=== PATIENT | female | born 1970 | race Hispanic/Latino ===

== ENCOUNTER 2018-01-01 08:36 | Emergency (ER) | payer OTHER ==
--- NOTE | 2018-01-01 09:23 | ED PDOC ---
Arrival/HPI - General Chief Complaint: Trauma Time Seen by Provider: 01/01/18 09:11 Historian: Patient - History of Present Illness Narrative History of Present Illness (Text): 01/01/18 09:20 47 y/o female, no pmh, penicillin and sulfa drug allergy, c/o rt. hand thumb pain s/p jammed it last night from play fight. Aching pain, aggravated by movement, no numbness or tingling, no night sweat, no rash, no change in vision , no other medical or psychological complaints. Past Medical History - Provider Review Nursing Documentation Reviewed: Yes - Infectious Disease Hx of Infectious Diseases: None - Pulmonary Hx Asthma: Yes - Endocrine/Metabolic Hx Systemic Lupus Erythematosus: Yes - Psychiatric Hx Anxiety: Yes Hx Panic Disorder: Yes Hx Substance Use: No - Surgical History Hx Section: Yes Hx Dilation and Curettage: Yes (x3) Family/Social History - Physician Review Nursing Documentation Reviewed: Yes Family/Social History: Unknown Family HX Smoking Status: Never Smoked Hx Alcohol Use: No Hx Substance Use: No Allergies/Home Meds Allergies/Adverse Reactions: Allergies Penicillins Allergy (Verified 01/01/18 09:18) ANAPHYLAXIS Sulfa (Sulfonamide Antibiotics) Allergy (Verified 01/01/18 09:18) URTICARIA Review of Systems - Review of Systems Constitutional: absent: Fatigue, Fevers Eyes: absent: Vision Changes ENT: absent: Hearing Changes Respiratory: absent: SOB, Cough Cardiovascular: absent: Chest Pain Gastrointestinal: absent: Abdominal Pain, Nausea, Vomiting Musculoskeletal: Arthralgias, Joint Swelling. absent: Back Pain, Neck Pain, Myalgias Skin: absent: Rash, Pruritis Psychiatric: absent: Anxiety, Depression, Suicidal Ideation Physical Exam Vital Signs Reviewed: Yes Vital Signs Temp Pulse Resp BP Pulse Ox 01/01/18 09:29 98.2 F 81 16 141/74 99 Temperature: Afebrile Pulse: Regular Respiratory Rate: Normal Appearance: Positive for: Well-Appearing, Non-Toxic, Comfortable Pain Distress: Moderate Mental Status: Positive for: Alert and Oriented X 3 - Systems Exam Head: Present: Atraumatic, Normocephalic Pupils: Present: PERRL Extroacular Muscles: Present: EOMI Conjunctiva: Present: Normal Mouth: Present: Moist Mucous Membranes Neck: Present: Normal Range of Motion Respiratory/Chest: Present: Clear to Auscultation, Good Air Exchange. No: Respiratory Distress, Accessory Muscle Use Cardiovascular: Present: Regular Rate and Rhythm, Normal S1, S2. No: Murmurs Abdomen: Present: Normal Bowel Sounds. No: Tenderness, Distention, Peritoneal Signs Back: Present: Normal Inspection Upper Extremity: Present: Normal Inspection, Other (Rt. hand: +ttp and mild swelling to the 1st MCPJ region, skin intact, no laceration or abrasion, FROM without limitation, sensation intact, motor 5/5, +radial pulse, capillary refill < 2 seconds, neurovascular intact. ). No: Cyanosis, Edema Lower Extremity: Present: Normal Inspection. No: Edema Neurological: Present: GCS=15, CN II-XII Intact, Speech Normal Skin: Present: Warm, Dry, Normal Color. No: Rashes Psychiatric: Present: Alert, Oriented x 3, Normal Insight, Normal Concentration Medical Decision Making ED Course and Treatment: 01/01/18 09:23 -rt. hand xray -motrin -observe and reasses 01/01/18 11:26 -Urine hcg negative -Rt. hand xray show no fracture or dislocation. -thumb spica splint applied with neurovascular intact by me. -Pain decreased -Discharge home with naproxen, thumb spica splint, ice compression, follow up with your own pmd and hand specialist within 2 days, return to the ER for any new or worsening signs or symptoms. - RAD Interpretation Radiology Orders: 01/01/18 09:53 HAND RIGHT THUMB [RAD] Stat PROCEDURE: Right Hand and thumb Radiographs. HISTORY: rt. hand thumb pain COMPARISON: None. FINDINGS: BONES: Normal. No fracture. JOINTS: Normal. No osteoarthritic changes. SOFT TISSUES: Normal. OTHER FINDINGS: None. IMPRESSION: Normal right hand radiographs. Land Manager: Radiologist - Medication Orders Current Medication Orders: Discontinued Medications Ibuprofen (Motrin Tab) 600 mg PO STAT STA Stop: 01/01/18 09:20 Last Admin: 01/01/18 10:09 Dose: 600 mg MAR Pain/Vitals Document 01/01/18 10:09 SF (Rec: 01/01/18 10:09 SF [id number]) Pain Reassessment Is This A Pain ReAssessment? Yes Sleep Is patient sleeping during reassessment? No Presence of Pain Presence of Pain Yes Pain Scale Used Pain Scale Used Numeric Location Left, Right or Bilateral Right Pain Location Body Site Finger - PA / HOME HEALTH NURSE / Resident Statement / has reviewed & agrees with the documentation as recorded. Disposition/Present on Arrival - Present on Arrival Any Indicators Present on Arrival: No History of DVT/PE: No History of Uncontrolled Diabetes: No Urinary Catheter: No History of Decub. Ulcer: No History Surgical Site Infection Following: None - Disposition Have Diagnosis and Disposition been Completed?: Yes Diagnosis: Thumb pain, Thumb injury Disposition: HOME/ ROUTINE Disposition Time: 09:23 Patient Plan: Discharge Patient Problems: Current Active Problems Problem Status Onset Thumb pain Acute Thumb injury Acute Condition: GOOD Additional Instructions: -Discharge home with naproxen, thumb spica splint, ice compression, follow up with your own pmd and hand specialist within 2 days, return to the ER for any new or worsening signs or symptoms. Prescriptions: Naproxen 500 mg PO BID PRN #20 tablet PRN Reason: Other Referrals: Shaik Pacheco MD [Primary Care Provider] - Follow up with primary Myron Santos DO [Staff Provider] - Follow up with primary Forms: [facility] (Icelandic), WORK NOTE
[2018-01-01 09:37] VITALS: RESP 16; TEMP 98.2; O2SAT 99
--- NOTE | 2018-01-01 11:38 | RAD ---
PROCEDURE: Right Hand and thumb Radiographs. HISTORY: rt. hand thumb pain COMPARISON: None. FINDINGS: BONES: Normal. No fracture. JOINTS: Normal. No osteoarthritic changes. SOFT TISSUES: Normal. OTHER FINDINGS: None. IMPRESSION: Normal right hand radiographs.
[2018-01-01 11:47] VITALS: BP 139/87; PULSE 80
== END 2018-01-01 11:45 | disposition home or self-care (01) ==
LOC: ED 08:36 → MERGE 08:36 → ED 11:45
DX: S69.91XA Unspecified injury of right wrist, hand and finger(s), initial encounter (principal); W23.0XXA Caught, crushed, jammed, or pinched between moving objects, initial encounter; Y92.89 Other specified places as the place of occurrence of the external cause

== ENCOUNTER 2018-03-23 11:56 | Emergency (ER) | payer OTHER ==
[2018-03-23 11:57] VITALS: BMI 44.6
== END 2018-03-23 13:09 | disposition left against medical advice (07) ==
LOC: ED 11:56
DX: Z02.89 Encounter for other administrative examinations (principal); R07.0 Pain in throat

== ENCOUNTER 2018-07-04 14:11 | Emergency (ER) | payer OTHER ==
[2018-07-04 14:32] VITALS: RESP 18; O2SAT 96; BMI 45.7
[2018-07-04] MEDS ORDERED: Sodium Chloride 0.9% 1,000 ML IV STA (14:44)
--- NOTE | 2018-07-04 14:58 | ED PDOC ---
Arrival/HPI - General Chief Complaint: Abdominal Pain Time Seen by Provider: 07/04/18 14:28 Historian: Patient - History of Present Illness Narrative History of Present Illness (Text): 07/04/18 14:54 48 year old female with a past medical history of Asthma, Bipolar Disorder, Anxiety, depression, and , presents to the emergency department with flu-like symptoms, and worsening throat/ear pain for 4 days. Patient states she saw her PMD for her initial flu-like symptoms, and was treated with antibiotic. Patient states after antibiotics, she began to feel throat pain and ear pain. Patient states it hurts when she eats, and she feels pressure in her ears. The patient denies fevers, chills, headache, dizziness, chest pain, shortness of breath, nausea, vomiting, diarrhea, neck/back pain, urinary/bowel changes or any other complaint. Symptom Course: Unchanged Quality: Aching Past Medical History - Provider Review Nursing Documentation Reviewed: Yes - Infectious Disease Hx of Infectious Diseases: None - Cardiac Hx Hypertension: Yes - Pulmonary Hx Asthma: Yes Hx Bronchitis: Yes - Neurological Hx Neurological Disorder: No - HEENT Hx HEENT Disorder: No - Renal Hx Renal Disorder: No - Endocrine/Metabolic Hx Systemic Lupus Erythematosus: Yes - Hematological/Oncological Hx Blood Disorders: No - Integumentary Hx Dermatological Disorder: No - Musculoskeletal/Rheumatological Hx Musculoskeletal Disorders: No - Gastrointestinal Hx Gastrointestinal Disorders: No - Psychiatric Hx Anxiety: Yes Hx Bipolar Disorder: Yes Hx Panic Disorder: Yes Hx Substance Use: No - Surgical History Hx Dilation and Curettage: Yes - Anesthesia Hx Anesthesia: Yes Hx Anesthesia Reactions: No Hx Malignant Hyperthermia: No Family/Social History - Physician Review Nursing Documentation Reviewed: Yes Family/Social History: No Known Family HX Smoking Status: Heavy Smoker > 10 Cigarettes Daily Hx Alcohol Use: Yes Frequency of alcohol use: Socially Hx Substance Use: No Allergies/Home Meds Allergies/Adverse Reactions: Allergies Penicillins Allergy (Verified 09/05/17 11:00) RASH Sulfa (Sulfonamide Antibiotics) Allergy (Verified 09/05/17 11:00) REDNESS Review of Systems - Physician Review All systems were reviewed & negative as marked: Yes - Review of Systems Constitutional: Normal. absent: Fevers, Night Sweats Eyes: Normal ENT: Tinnitus, Sore Throat Respiratory: Normal. absent: SOB Cardiovascular: Normal. absent: Chest Pain Gastrointestinal: Normal. absent: Abdominal Pain, Diarrhea, Nausea, Vomiting Genitourinary Female: Normal Musculoskeletal: Normal. absent: Back Pain, Neck Pain Skin: Normal Neurological: Normal. absent: Headache, Dizziness Endocrine: Normal Hemo/Lymphatic: Normal Psychiatric: Normal Physical Exam Vital Signs Reviewed: Yes Vital Signs Temp Pulse Resp BP Pulse Ox 07/04/18 15:56 98.2 F 80 18 153/87 H 96 07/04/18 14:11 98.8 F 75 18 137/95 H 96 Temperature: Afebrile Blood Pressure: Normal Pulse: Regular Respiratory Rate: Normal Appearance: Positive for: Well-Appearing, Non-Toxic, Comfortable Pain Distress: None Mental Status: Positive for: Alert and Oriented X 3 - Systems Exam Head: Present: Atraumatic, Normocephalic Pupils: Present: PERRL Extroacular Muscles: Present: EOMI Conjunctiva: Present: Normal Mouth: Present: Moist Mucous Membranes Neck: Present: Normal Range of Motion Respiratory/Chest: Present: Clear to Auscultation, Good Air Exchange. No: Respiratory Distress, Accessory Muscle Use Cardiovascular: Present: Regular Rate and Rhythm, Normal S1, S2. No: Murmurs Abdomen: Present: Tenderness (epigastric tenderness) Back: Present: Normal Inspection Upper Extremity: Present: Normal Inspection. No: Cyanosis, Edema Lower Extremity: Present: Normal Inspection. No: Edema Neurological: Present: GCS=15, CN II-XII Intact, Speech Normal Skin: Present: Warm, Dry, Normal Color. No: Rashes Psychiatric: Present: Alert, Oriented x 3, Normal Insight, Normal Concentration Medical Decision Making ED Course and Treatment: 07/04/18 15:01 Impression: 48 year old female presents to the emergency department with flu- like symptoms and throat/ear pain and epigastric pain - suspect gerd vs gastriirts vs pud vs viral syndrome. labs imaging pendign bedside us neg for cholecystitis. Plan: -- Labs -- Urinalysis -- Tylenol -- Zofran -- Protonix -- Reassess and disposition Prior Visits: Notes and results from previous visits were reviewed. Progress Notes: 07/05/18 07:20 labs neg. pain resolved. no lower abd pain no rlq ttp. advise outpt fu and return precautions pt states she feels much better asking for dc - Lab Interpretations Lab Results: 07/04/18 15:00 07/04/18 15:00 Lab Results 07/04/18 15:00: Grp A Beta Strep Ag Negative 07/04/18 15:00: Sodium 140, Potassium 4.0, Chloride 105, Carbon Dioxide 26, Anion Gap 12, BUN 11, Creatinine 0.7, Est GFR ( Amer) > 60, Est GFR (Non- Af Amer) > 60, Random Glucose 89, Calcium 9.1, Magnesium 2.1, Total Bilirubin 0.4, AST 19, ALT 19, Alkaline Phosphatase 68, Total Protein 6.9, Albumin 3.7, Globulin 3.2, Albumin/Globulin Ratio 1.2, Lipase 27 07/04/18 15:00: Urine Color Yellow, Urine Appearance Clear, Urine pH 6.5, Ur Specific [place] 1.010, Urine Protein Negative, Urine Glucose (UA) Negative, Urine Ketones Negative, Urine Blood Negative, Urine Nitrate Negative, Urine Bilirubin Negative, Urine Urobilinogen 0.2, Ur Leukocyte Esterase Negative, Urine HCG, Qual Negative 07/04/18 15:00: PT 11.6, INR 1.02, APTT 28.3 07/04/18 15:00: WBC 9.0, RBC 4.44, Hgb 12.2, Hct 36.3, MCV 81.8, MCH 27.5, MCHC 33.6, RDW 14.4, Plt Count 274, MPV 9.5, Gran % 69.1 H, Lymph % (Auto) 24.9, [place] % (Auto) 5.8, Eos % (Auto) 0.0 L, Baso % (Auto) 0.2, Gran # 6.25, Lymph # ( Auto) 2.3, [place] # (Auto) 0.5, Eos # (Auto) 0.0, Baso # (Auto) 0.02 - RAD Interpretation Radiology Orders: 07/04/18 14:45 CHEST PORTABLE [RAD] Stat - Medication Orders Current Medication Orders: Discontinued Medications Acetaminophen (Tylenol 325mg Tab) 975 mg PO STAT STA Stop: 07/04/18 14:45 Last Admin: 07/04/18 15:18 Dose: 975 mg MAR Pain/Vitals Document 07/04/18 15:18 SRE (Rec: 07/04/18 15:18 SRE [id number]) Pain Reassessment Is This A Pain ReAssessment? Yes Sleep Is patient sleeping during reassessment? No Presence of Pain Presence of Pain Yes Pain Scale Used Pain Scale Used Numeric Location Pain Location Body Site Back Description Intermittent Sodium Chloride (Sodium Chloride 0.9%) 1,000 mls @ 1,000 mls/hr IV .Q1H STA Stop: 07/04/18 15:43 Last Admin: 07/04/18 15:17 Dose: 1,000 mls/hr eMAR Start Stop Document 07/04/18 15:17 SRE (Rec: 07/04/18 15:18 SRE [id number]) Intravenous Solution Start Date 07/04/18 Start Time 15:17 End Date 07/04/18 End time 16:20 Total Infusion Time 63 Ondansetron HCl (Zofran Inj) 4 mg IVP STAT STA Stop: 07/04/18 14:46 Last Admin: 07/04/18 15:18 Dose: 4 mg IVP Administration Document 07/04/18 15:18 SRE (Rec: 07/04/18 15:18 SRE [id number]) Charges for Administration # of IVP Administrations 1 Pantoprazole Sodium (Protonix Inj) 40 mg IVP STAT STA Stop: 07/04/18 14:45 Last Admin: 07/04/18 15:18 Dose: 40 mg IVP Administration Document 07/04/18 15:18 SRE (Rec: 07/04/18 15:18 SRE [id number]) Charges for Administration # of IVP Administrations 1 - Scribe Statement The provider has reviewed the documentation as recorded by the Scribvanda Bar All medical record entries made by the Scribe were at my direction and personally dictated by me. I have reviewed the chart and agree that the record accurately reflects my personal performance of the history, physical exam, medical decision making, and the department course for this patient. I have also personally directed, reviewed, and agree with the discharge instructions and disposition. Disposition/Present on Arrival - Present on Arrival Any Indicators Present on Arrival: No History of DVT/PE: No History of Uncontrolled Diabetes: No Urinary Catheter: No History of Decub. Ulcer: No History Surgical Site Infection Following: None - Disposition Have Diagnosis and Disposition been Completed?: Yes Diagnosis: Sore throat, Abdominal pain Disposition: HOME/ ROUTINE Disposition Time: 03:00 Condition: STABLE Discharge Instructions (ExitCare): Sore Throat in Adults, Acute Abdomen (Belly Pain) Additional Instructions: please follow up with your doctor. return to er with worsening symptoms or concerns. please see specialists Prescriptions: Pantoprazole Sodium [Protonix] 40 mg PO DAILY 10 Days #10 ect Referrals: [facility] [Outside] - Follow up with primary [facility] [place] [Outside] - Follow up with primary Marques Dougherty JD, MD [Primary Care Provider] - Follow up with primary Yrn Giordano MD [Staff Provider] - Follow up with primary Forms: [employer] (Bulgarian)
[2018-07-04 15:24] LABS: PH,URINE 6.5 (4.7-8.0); URINE BILIRUBIN NEGATIVE (NEGATIVE); URINE BLOOD NEGATIVE (NEGATIVE); URINE GLUCOSE (UA) NEGATIVE (NEGATIVE); URINE LEUKOCYTE ESTERASE NEGATIVE Leu/uL (NEGATIVE); URINE PROTEIN NEGATIVE mg/dL (<30 mg/dL); URINE UROBILINOGEN 0.2 E.U./dL (<1 E.U./dL)
[2018-07-04 15:28] LABS: BASO # 0.02 K/mm3 (0.0-2.0); BASO % 0.2 % (0.0-3.0); GRAN # 6.25 (1.4-6.5); GRAN % 69.1 % (50.0-68.0); HEMOGLOBIN 12.2 g/dL (12.0-16.0); LYMPH # 2.3 (1.2-3.4); LYMPH % 24.9 % (22.0-35.0); MEAN CELL VOLUME 81.8 fl (80.0-105.0); MEAN CORPUSCULAR HEMOGLOBIN 27.5 pg (25.0-35.0); MEAN CORPUSCULAR HGB CONC 33.6 g/dl (31.0-37.0); MEAN PLATELET VOLUME 9.5 fl (7.0-11.0); MONO # 0.5 (0.1-0.6); MONO % 5.8 % (1.0-6.0); RBC 4.44 10^6/uL (3.5-6.1); RED CELL DISTRIBUTION WIDTH 14.4 % (11.5-14.5); URINE APPEARANCE CLEAR (CLEAR); URINE COLOR YELLOW (YELLOW)
[2018-07-04 15:29] LABS: HCG,QUALITATIVE URINE NEGATIVE (NEGATIVE)
[2018-07-04 15:30] LABS: INR 1.02; PARTIAL THROMBOPLASTIN TIME 28.3 Seconds (25.1-36.5); PROTHROMBIN TIME 11.6 SECONDS (9.4-12.5)
[2018-07-04 15:37] LABS: ALB/GLOB RATIO 1.2 (1.1-1.8); ALBUMIN 3.7 g/dL (3.0-4.8); ALT/SGPT 19 U/L (7-56); AST/SGOT 19 U/L (14-36); BLOOD UREA NITROGEN 11 mg/dL (7-21); CALCIUM 9.1 mg/dL (8.4-10.5); GFR NON-AFRICAN AMERICAN > 60; LIPASE 27 U/L (23-300)
--- NOTE | 2018-07-04 15:49 | RAD ---
Date of service: 07/04/2018 HISTORY: Abdominal pain COMPARISON: 02/10/2018. FINDINGS: LUNGS: The lungs are well inflated and clear. PLEURA: No significant pleural effusion identified, no pneumothorax apparent. CARDIOVASCULAR: Normal. OSSEOUS STRUCTURES: No significant abnormalities. VISUALIZED UPPER ABDOMEN: Normal. OTHER FINDINGS: None. IMPRESSION: No active pulmonary disease.
[2018-07-04 15:58] VITALS: BP 153/87; PULSE 80; TEMP 98.2
== END 2018-07-04 15:56 | disposition home or self-care (01) ==
LOC: ED 14:11
DX: J02.9 Acute pharyngitis, unspecified (principal); R10.13 Epigastric pain; F17.210 Nicotine dependence, cigarettes, uncomplicated; I10 Essential (primary) hypertension; M32.9 Systemic lupus erythematosus, unspecified
CPT/HCPCS: 71045; 80053; 81003; 83690; 83735; 84703; 85025; 85610; 85730; 87070; 87430; 96361; 96374; 96375; 99283; C9113; J2405; J7030

== ENCOUNTER 2018-09-06 20:14 | Emergency (ER) | payer OTHER ==
[2018-09-06 20:15] VITALS: BMI 45.7
[2018-09-06 20:46] VITALS: O2SAT 96
[2018-09-06] MEDS ORDERED: Albuterol-Ipratrop 3 mg / 0.5 (3 ml) UD IH STA (21:10)
--- NOTE | 2018-09-06 21:17 | ED PDOC ---
Arrival/HPI - General Chief Complaint: Cough, Cold, Congestion Time Seen by Provider: 09/06/18 20:54 Historian: Patient - History of Present Illness Narrative History of Present Illness (Text): 09/06/18 21:16 48 y/o F w/ Past medical history of asthma and walking pneumonia presents to the emergency department complaining of cough and congestions for the last 3 days. Patient reports experiencing associated chest pain, cough with yellow and white sputum, wheezing, chills, a sore throat and notes she feels a tightness when breathing. Patient notes her youngest daughter has been experiencing similar symptoms since 3 days ago as well. Patient denies any fever, shortness of breath, diarrhea, nausea, vomiting, urinary symptoms, back pain, neck pain, headache, dizziness, or any other complaints. Time/Duration: Other (3 days) Symptom Onset: Gradual Symptom Course: Unchanged Activities at Onset: Light Context: Home Past Medical History - Provider Review Nursing Documentation Reviewed: Yes - Infectious Disease Hx of Infectious Diseases: None - Cardiac Hx Hypertension: Yes - Pulmonary Hx Asthma: Yes Hx Bronchitis: Yes - Neurological Hx Neurological Disorder: No - HEENT Hx HEENT Disorder: No - Renal Hx Renal Disorder: No - Endocrine/Metabolic Hx Systemic Lupus Erythematosus: Yes - Hematological/Oncological Hx Blood Disorders: No - Integumentary Hx Dermatological Disorder: No - Musculoskeletal/Rheumatological Hx Musculoskeletal Disorders: No - Gastrointestinal Hx Gastrointestinal Disorders: No - Psychiatric Hx Anxiety: Yes Hx Bipolar Disorder: Yes Hx Panic Disorder: Yes Hx Substance Use: No - Surgical History Hx Dilation and Curettage: Yes - Anesthesia Hx Anesthesia: Yes Hx Anesthesia Reactions: No Hx Malignant Hyperthermia: No Family/Social History - Physician Review Nursing Documentation Reviewed: Yes Family/Social History: Unknown Family HX Smoking Status: Heavy Smoker > 10 Cigarettes Daily Hx Alcohol Use: Yes Hx Substance Use: No Allergies/Home Meds Allergies/Adverse Reactions: Allergies Penicillins Allergy (Verified 09/06/18 20:31) RASH Sulfa (Sulfonamide Antibiotics) Allergy (Verified 09/06/18 20:31) REDNESS Review of Systems - Physician Review All systems were reviewed & negative as marked: Yes - Review of Systems Constitutional: Night Sweats. absent: Fevers Respiratory: Cough, Wheezing Cardiovascular: Chest Pain Gastrointestinal: absent: Diarrhea, Nausea, Vomiting Genitourinary Female: absent: Urine Output Changes Musculoskeletal: absent: Back Pain, Neck Pain Neurological: absent: Headache, Dizziness Physical Exam Vital Signs Reviewed: Yes Vital Signs Temp Pulse Resp BP Pulse Ox 09/06/18 20:29 98.9 F 80 17 126/75 96 Temperature: Afebrile Blood Pressure: Normal Pulse: Regular Respiratory Rate: Normal Appearance: Positive for: Well-Appearing, Non-Toxic, Comfortable Pain Distress: None Mental Status: Positive for: Alert and Oriented X 3 - Systems Exam Head: Present: Atraumatic, Normocephalic Pupils: Present: PERRL Extroacular Muscles: Present: EOMI Conjunctiva: Present: Normal Mouth: Present: Moist Mucous Membranes Pharnyx: Present: ERYTHEMA, Other (+Cervical lymphadenopathy). No: Normal Neck: Present: Normal Range of Motion Respiratory/Chest: Present: Wheezes (+faint wheezing), Decreased Breath Sounds (+diminished breath sounds bilaterally) Cardiovascular: Present: Regular Rate and Rhythm, Normal S1, S2. No: Murmurs Abdomen: No: Tenderness, Distention, Peritoneal Signs Back: Present: Normal Inspection Upper Extremity: Present: Normal Inspection. No: Cyanosis, Edema Lower Extremity: Present: Normal Inspection. No: Edema Neurological: Present: GCS=15, CN II-XII Intact, Speech Normal Skin: Present: Warm, Dry, Normal Color. No: Rashes Psychiatric: Present: Alert, Oriented x 3, Normal Insight, Normal Concentration Medical Decision Making ED Course and Treatment: 09/06/18 21:17 Impression 48 y/o F presenting with cough and congestion. Differential Diagnoses Include But Are Not Limited To: PNA Bronchitis ACS Plan -- EKG -- Chest X-ray -- Duoneb -- Prednisone -- Influenza A B test --Reassess & disposition Progress Notes - RAD Interpretation Narrative RAD Interpretations (Text): 09/06/18 22:45 Chest X-ray reviewed by me, diffused pulmonary congestion noted. Trachea midline, no cardiomegaly. Treat for atypical pneumonia. [employer] Machine Operator: ED Physician - EKG Interpretation EKG Interpretation (Text): 09/06/18 21:31 EKG: Ordered, reviewed, and independently interpreted the EKG. Rate : 67 BPM Rhythm : NSR Interpretation : No ST-segment elevations or depressions, no T-wave inversions, normal [place] intervals. Interpreted by ED Physician: Yes - Medication Orders Current Medication Orders: Discontinued Medications Albuterol/Ipratropium (Duoneb 3 Mg/0.5 Mg (3 Ml) Ud) 3 ml IH STAT STA Stop: 09/06/18 21:11 Prednisone (Prednisone Tab) 60 mg PO STAT ONE Stop: 09/06/18 21:11 - Scribe Statement The provider has reviewed the documentation as recorded by the Scribe Virginia Roberts All medical record entries made by the Scribe were at my direction and personally dictated by me. I have reviewed the chart and agree that the record accurately reflects my personal performance of the history, physical exam, medical decision making, and the department course for this patient. I have also personally directed, reviewed, and agree with the discharge instructions and disposition. Disposition/Present on Arrival - Present on Arrival Any Indicators Present on Arrival: No History of DVT/PE: No History of Uncontrolled Diabetes: No Urinary Catheter: No History of Decub. Ulcer: No History Surgical Site Infection Following: None - Disposition Have Diagnosis and Disposition been Completed?: Yes Diagnosis: Asthma exacerbation, Bronchitis Disposition: HOME/ ROUTINE Disposition Time: 22:29 Patient Plan: Discharge Patient Problems: Current Active Problems Problem Status Onset Asthma exacerbation Acute Bronchitis Acute Condition: IMPROVED Discharge Instructions (ExitCare): Asthma, Adult (DC), Chronic Bronchitis (DC) Additional Instructions: All medical record entries made by the Scribe were at my direction and personally dictated by me. I have reviewed the chart and agree that the record accurately reflects my personal performance of the history, physical exam, medical decision making, and the department course for this patient. I have also personally directed, reviewed, and agree with the discharge instructions and disposition. Prescriptions: Albuterol HFA [Ventolin HFA 90 mcg/actuation (8 g)] 2 puff IH [id number] #60 puff Azithromycin [Z-Reed] 250 mg PO DAILY #6 tab Methylprednisolone [Medrol Dose Pack (21 tabs)] 4 mg PO DAILY #21 mg Referrals: Yolanda Fischer MD [Medical Doctor] - Follow up with [place] [facility] [place] - Follow up with primary Forms: [facility] (Vietnamese), WORK NOTE
--- NOTE | 2018-09-06 21:17 | ED PDOC ---
Arrival/HPI - General Chief Complaint: Cough, Cold, Congestion Time Seen by Provider: 09/06/18 20:54 Past Medical History - Infectious Disease Hx of Infectious Diseases: None - Cardiac Hx Hypertension: Yes - Pulmonary Hx Asthma: Yes Hx Bronchitis: Yes - Neurological Hx Neurological Disorder: No - HEENT Hx HEENT Disorder: No - Renal Hx Renal Disorder: No - Endocrine/Metabolic Hx Systemic Lupus Erythematosus: Yes - Hematological/Oncological Hx Blood Disorders: No - Integumentary Hx Dermatological Disorder: No - Musculoskeletal/Rheumatological Hx Musculoskeletal Disorders: No - Gastrointestinal Hx Gastrointestinal Disorders: No - Psychiatric Hx Anxiety: Yes Hx Bipolar Disorder: Yes Hx Panic Disorder: Yes Hx Substance Use: No - Surgical History Hx Dilation and Curettage: Yes - Anesthesia Hx Anesthesia: Yes Hx Anesthesia Reactions: No Hx Malignant Hyperthermia: No Family/Social History Smoking Status: Heavy Smoker > 10 Cigarettes Daily Hx Alcohol Use: Yes Hx Substance Use: No Allergies/Home Meds Allergies/Adverse Reactions: Allergies Penicillins Allergy (Verified 09/06/18 20:31) RASH Sulfa (Sulfonamide Antibiotics) Allergy (Verified 09/06/18 20:31) REDNESS Physical Exam Vital Signs Temp Pulse Resp BP Pulse Ox 09/06/18 20:29 98.9 F 80 17 126/75 96 Disposition/Present on Arrival - Present on Arrival History of DVT/PE: No History of Uncontrolled Diabetes: No Urinary Catheter: No History of Decub. Ulcer: No History Surgical Site Infection Following: None - Disposition
[2018-09-06 22:53] VITALS: BP 137/70; PULSE 64; RESP 18; TEMP 97.8
--- NOTE | 2018-09-07 09:23 | RAD ---
Date of service: 09/06/2018 HISTORY: sob COMPARISON: 07/04/2018 FINDINGS: LUNGS: No active pulmonary disease. PLEURA: No significant pleural effusion identified, no pneumothorax apparent. CARDIOVASCULAR: No aortic atherosclerotic calcification present. Normal cardiac size. No pulmonary vascular congestion. OSSEOUS STRUCTURES: No significant abnormalities. VISUALIZED UPPER ABDOMEN: Normal. OTHER FINDINGS: None. IMPRESSION: No active disease.
--- NOTE | 2018-09-07 10:28 | CARD ---
APPROVED REPORT Date of service: 09/06/2018 EKG Measurement Heart [id number] <Conclusion> Normal sinus rhythm Normal ECG
== END 2018-09-06 23:03 | disposition home or self-care (01) ==
LOC: ED 20:14
DX: J45.901 Unspecified asthma with (acute) exacerbation (principal); I10 Essential (primary) hypertension; F17.210 Nicotine dependence, cigarettes, uncomplicated

== ENCOUNTER 2018-10-31 16:38 | Emergency (ER) | payer OTHER ==
[2018-10-31 16:38] VITALS: BMI 45.7
[2018-10-31 16:59] VITALS: RESP 18
[2018-10-31] MEDS ORDERED: guaiFENesin 200 mg/10 ml Syrup UD PO ONE (17:57)
--- NOTE | 2018-10-31 18:04 | ED PDOC ---
Arrival/HPI - General Chief Complaint: Flu-like Symptoms Time Seen by Provider: 10/31/18 17:34 Historian: Patient - History of Present Illness Narrative History of Present Illness (Text): 10/31/18 18:02 48 yo with PMH of asthma c/o 6 day h/o fever, dry cough, runny nose, bodyaches, headache, nausea, states that she saw her pmd 6 days ago, was diagnosed with the flu and Rx tamiflu, which she took but did not complete due to side effects. Reports continuation of her symptoms prompted ER visit. Otherwise, reports no SOB, CP, V/D, abdominal pain, recent travel, sick contacts. Past Medical History - Infectious Disease Hx of Infectious Diseases: None - Cardiac Hx Hypertension: Yes - Pulmonary Hx Asthma: Yes Hx Bronchitis: Yes - Neurological Hx Neurological Disorder: No - HEENT Hx HEENT Disorder: No - Renal Hx Renal Disorder: No - Endocrine/Metabolic Hx Systemic Lupus Erythematosus: Yes - Hematological/Oncological Hx Blood Disorders: No - Integumentary Hx Dermatological Disorder: No - Musculoskeletal/Rheumatological Hx Musculoskeletal Disorders: No - Gastrointestinal Hx Gastrointestinal Disorders: No - Psychiatric Hx Anxiety: Yes Hx Bipolar Disorder: Yes Hx Panic Disorder: Yes Hx Substance Use: No - Surgical History Hx Dilation and Curettage: Yes - Anesthesia Hx Anesthesia: Yes Hx Anesthesia Reactions: No Hx Malignant Hyperthermia: No Family/Social History Family/Social History: No Known Family HX Smoking Status: Heavy Smoker > 10 Cigarettes Daily Hx Alcohol Use: Yes Hx Substance Use: No Allergies/Home Meds Allergies/Adverse Reactions: Allergies Penicillins Allergy (Verified 09/06/18 20:31) RASH Sulfa (Sulfonamide Antibiotics) Allergy (Verified 09/06/18 20:31) REDNESS Review of Systems - Review of Systems Constitutional: Fatigue. absent: Fevers ENT: Sore Throat, Rhinorrhea, Sinus Congestion Respiratory: Cough. absent: SOB, Sputum Cardiovascular: absent: Chest Pain, Palpitations, Edema Gastrointestinal: Nausea. absent: Abdominal Pain, Diarrhea, Vomiting Genitourinary Female: absent: Dysuria, Frequency, Hematuria Skin: absent: Rash, Pruritis, Skin Lesions Neurological: Headache. absent: Dizziness, Focal Weakness Physical Exam Vital Signs Temp Pulse Resp BP Pulse Ox 10/31/18 16:38 98.2 F 79 18 144/83 98 Temperature: Afebrile Blood Pressure: Normal Pulse: Regular Respiratory Rate: Normal Appearance: Positive for: Well-Appearing, Non-Toxic, Comfortable Pain Distress: None Mental Status: Positive for: Alert and Oriented X 3 - Systems Exam Head: Present: Atraumatic, Normocephalic Pupils: Present: PERRL Extroacular Muscles: Present: EOMI Conjunctiva: Present: Normal Ears: Present: Normal, NORMAL TM. No: Erythema Mouth: Present: Moist Mucous Membranes Pharnyx: Present: Normal. No: ERYTHEMA, EXUDATE, TONSILS ENLARGED Neck: Present: Normal Range of Motion. No: Meningeal Signs, Lymphadenopathy Respiratory/Chest: Present: Clear to Auscultation, Good Air Exchange, Wheezes (+faint expiratory wheeze to the RLL), Rhonchi (+slight rhonchi to the RLL), Other (patient speaking in full sentences). No: Respiratory Distress, Accessory Muscle Use, Rales Cardiovascular: Present: Regular Rate and Rhythm, Normal S1, S2. No: Murmurs Abdomen: No: Tenderness, Distention, Peritoneal Signs Back: Present: Normal Inspection Upper Extremity: Present: Normal Inspection. No: Cyanosis, Edema Lower Extremity: Present: Normal Inspection. No: Edema Neurological: Present: GCS=15, CN II-XII Intact, Speech Normal, Motor Func Grossly Intact, Normal Sensory Function Skin: Present: Warm, Dry, Normal Color. No: Rashes Psychiatric: Present: Alert, Oriented x 3, Normal Insight, Normal Concentration Medical Decision Making ED Course and Treatment: 10/31/18 18:01 Plan : - CXR - guiafenesin PO CXR : +RLL infiltrate, as read by PA On reevaluation, patient remains awake alert and oriented 3 in no acute distress, speaking in full sentences, she is smiling and in good spirits. CXR results d/w the patient. Patient medicated with zithromax 500 mg po and duoneb x1. VS T 98 P 72 BP 138/78 R 18 O2sat 99%RA. Patient is stable for discharge, she feels comfortable going home and is in agreement with outpatient follow up with her pmd. Advised to follow up with primary care physician in 1-2 days without fail. Advised to take medication as prescribed. Return to the emergency room at any time for any new or worsening symptoms. Patient states she fully agrees with and understands discharge instructions, she feels comfortable going home. States that she agrees with the plan and disposition. Verbalized and repeated discharge instructions and plan. I have given the patient opportunity to ask any additional questions. - RAD Interpretation Radiology Orders: 10/31/18 17:57 CHEST TWO VIEWS (PA/LAT) [RAD] Stat - Medication Orders Current Medication Orders: Guaifenesin (Robitussin) 200 mg PO ONCE ONE Stop: 10/31/18 17:58 - PA / [employer] / Resident Statement MD/DO has reviewed & agrees with the documentation as recorded. Disposition/Present on Arrival - Present on Arrival Any Indicators Present on Arrival: No History of DVT/PE: No History of Uncontrolled Diabetes: No Urinary Catheter: No History of Decub. Ulcer: No History Surgical Site Infection Following: None - Disposition Have Diagnosis and Disposition been Completed?: Yes Diagnosis: Pneumonia Disposition: HOME/ ROUTINE Disposition Time: 20:30 Patient Plan: Discharge Condition: STABLE Discharge Instructions (ExitCare): Community-Acquired Pneumonia in Adults Additional Instructions: Thank you for letting us take care of you today. You were treated for pneumonia. The emergency medical care you received today was directed at your acute symptoms. If you were prescribed any medication, please fill it and take as directed. It may take several days for your symptoms to resolve. Return to the Emergency Department if your symptoms worsen, do not improve, or if you have any other problems. Please contact your doctor in 2 days for re-evaluation and follow up. Bring any paperwork you were given at discharge with you along with any medications you are taking to your follow up visit. Our treatment cannot replace ongoing medical care by a primary care provider (PCP) outside of the emergency department. Thank you for allowing the [facility] team to be part of your care today. If you had an X-Ray : A Radiologist will review the ED reading if any change in treatment is needed we will contact you. Prescriptions: Albuterol 0.083% [Albuterol Sulfate 3 Ml] 3 ml IH Q4 #100 neb Azithromycin [Zithromax] 250 mg PO DAILY #4 tab Guaifenesin 400 mg PO QID #20 tablet Forms: [employer] ([place]), WORK NOTE
[2018-10-31] MEDS ORDERED: Albuterol-Ipratrop 3 mg / 0.5 (3 ml) UD IH STA (20:26)
[2018-10-31 21:11] VITALS: BP 138/78; PULSE 72; TEMP 98; O2SAT 99
--- NOTE | 2018-11-01 11:32 | RAD ---
Date of service: 10/31/2018 HISTORY: Cough COMPARISON: 11/06/2018. TECHNIQUE: Chest PA and lateral FINDINGS: LUNGS: No active pulmonary disease. PLEURA: No significant pleural effusion identified. No pneumothorax apparent. CARDIOVASCULAR: No aortic atherosclerotic calcification present. Normal cardiac size. No pulmonary vascular congestion. OSSEOUS STRUCTURES: No significant abnormalities. VISUALIZED UPPER ABDOMEN: Normal. OTHER FINDINGS: None. IMPRESSION: No active disease. No significant interval change compared to the prior examination(s).
== END 2018-10-31 21:12 | disposition home or self-care (01) ==
LOC: ED 16:38
DX: J18.9 Pneumonia, unspecified organism (principal); F17.210 Nicotine dependence, cigarettes, uncomplicated

== ENCOUNTER 2018-11-12 14:58 | Outpatient (CLI) | payer OTHER | END 2018-11-12 14:59 | disposition home or self-care (01) | LOC: RAD 14:58 ==